=== PATIENT | female | born 1990 | race African-American/Black ===

== ENCOUNTER 2016-06-14 11:49 | Emergency (ER) | payer MEDICAID ==
[~2016-06-14] VITALS: Ht 157.5 cm; Wt 68.0 kg
[2016-06-14] MEDS ORDERED: OCUFLOX5 ML OP (12:16)
--- NOTE | 2016-06-14 12:28 | Emergency Room Report ---
History of Present Illness General Chief Complaint: Eye Problems Source: Patient Present Illness HPI 25 YO Female presents to the ED c/o : left eye redness, discharge, and increased lacrimation x 2 days, son has conjunctivitis and is currently being treated. Patient states her eye feels sticky, she denies pain or sensitivity to light patient denies changes in vision other than intermittent blurriness due to increasing tearing. She denies trauma to the eye. Denies CP, Palpitations, LOC, AMS, dizziness, Changes in Vision, Sensation, paresthesias, or a sudden severe headache. Allergies: Coded Allergies: SHELLFISH DERIVED (Unverified Allergy, Unknown, 06/14/16) Uncoded Allergies: SHELLFISH (Allergy, Unknown, 06/14/16) Patient History Past Medical History: see triage record Past Surgical History: none Pertinent Family History: none Last Menstrual Period: 2 weeks ago Now: No Immunizations: UTD Reviewed Nursing Documentation: PMH: Agreed, PSxH: Agreed Nursing Documentation-PMH Past Medical History: No Stated History Review of Systems All Other Systems: negative except mentioned in HPI Physical Exam Vital Signs Date Time Temp Pulse Resp B/P Pulse Ox O2 Delivery O2 Flow Rate FiO2 06/14/16 12:08 98.2 61 14 126/78 99 Room Air Sp02 EP Interpretation: reviewed, normal General Appearance: no apparent distress, alert, GCS 15, non-toxic Head: normocephalic, atraumatic Eyes: bilateral eye PERRL, bilateral eye normal inspection, bilateral eye other - erythema and obvious d/c noted in the left eye, no evidence of infestation or crusting of the lashes, lids are not swollen , no evidence of periorbital edema. ENT: hearing grossly normal, normal pharynx, no angioedema, normal voice, TMs + canals normal, uvula midline Neck: full range of motion, supple/symm/no masses Respiratory: lungs clear, normal breath sounds, speaking full sentences Cardiovascular #1: regular rate, rhythm, no edema Musculoskeletal: back normal, gait/station normal, normal range of motion, non- tender Neurologic: alert, oriented x3, responsive, motor strength/tone normal, sensory intact, speech normal Psychiatric: judgement/insight normal, memory normal, mood/affect normal Skin: normal color, no rash, warm/dry, well hydrated Lymphatic: no adenopathy Medical Decision Making PA Attestation Dr. Snyder is my supervising Physician whom patient management has been discussed with. Diagnostic Impression: Primary Impression: Conjunctivitis Qualified Codes: H10.32 - Unspecified acute conjunctivitis, left eye ER Course Pt. presents to the ED c/o : left eye redness, discharge, and increased lacrimation x 2 days, son has conjunctivitis and is currently being treated. Ddx considered but are not limited to: corneal abrasion, acute glaucoma, globe rupture, FB, Corneal Ulcer, conjunctivitis. Iridis, orbital cellulitis,keratitis , sinusitis Vital signs: are WNL, pt. is afebrile H&PE are most consistent with: bacterial conjunctivitis, no photophobia or fb sensation to suggest corneal abrasion. ORDERS: none at this time. ED INTERVENTIONS: none at this time. DISCHARGE: At this time pt. is stable for d/c to home. Will provide printed patient care instructions, and any necessary prescriptions. Care plan and follow up instructions have been discussed with the patient prior to discharge. Last Vital Signs Date Time Temp Pulse Resp B/P Pulse Ox O2 Delivery O2 Flow Rate FiO2 06/14/16 12:08 98.2 61 14 126/78 99 Room Air Disposition: HOME, SELF-CARE Condition: Stable Scripts Ofloxacin (OCUFLOX) 5 Ml Drops 3 DROP OP BID for 5 Days, #5 ML Prov: Dona Andrade 06/14/16 Patient Instructions: Bacterial Conjunctivitis Additional Instructions: Take medications as directed. Follow up with PCP in 3 days Return sooner to ED if new symptoms occur, or current symptoms become worse. - Please note that this Emergency Department Report was dictated using [employer] assistant technology software, occasionally this can lead to erroneous entry secondary to interpretation by the dictation equipment. Dona Andrade Jun 14, 2016 12:28
[2016-06-14 12:37] VITALS: BP 119/75
== END 2016-06-14 12:41 | disposition home or self-care (01) ==
LOC: EMR 12:37
DX: H10.9 Unspecified conjunctivitis (principal); Z91.013 Allergy to seafood
CPT/HCPCS: 99283

== ENCOUNTER 2016-09-26 12:03 | Emergency (ER) | payer MEDICAID ==
[~2016-09-26] VITALS: Ht 157.5 cm; Wt 70.3 kg
[~2016-09-26 12:03] MED LIST: OCUFLOX5 ML OP
[2016-09-26] MEDS ORDERED: NKM (12:16)
[2016-09-26 12:28] VITALS: BP 138/82
[2016-09-26] MEDS ORDERED: ZITHROMAX250 MG ORAL (12:56)
[2016-09-26] MEDS ORDERED: VIGAMOX1 DROP RIGHT EYE (12:56)
--- NOTE | 2016-09-26 12:56 | Emergency Room Report ---
History of Present Illness General Chief Complaint: Eye Problems Source: Patient Present Illness HPI Right eye irritation and redness x this morning. Woke up with eye red and with pustular drainage and eyelid swelling. States she has some photophobia and scratchy sensation. No other modifying factors. Does have a young child that is not symptomatic. Denies any other physical complaint or modifying factors. Denies any hx of glaucoma, decreased vision, or eye pain. Allergies: Coded Allergies: SHELLFISH DERIVED (Unverified Allergy, Unknown, 06/14/16) Uncoded Allergies: SHELLFISH (Allergy, Unknown, 06/14/16) Patient History Past Medical History: see triage record Past Surgical History: none Pertinent Family History: none Last Menstrual Period: 09/12/16 Now: No Immunizations: UTD Reviewed Nursing Documentation: PMH: Agreed, PSxH: Agreed Nursing Documentation-PMH Past Medical History: No Stated History Review of Systems All Other Systems: negative except mentioned in HPI Physical Exam Vital Signs Date Time Temp Pulse Resp B/P Pulse Ox O2 Delivery O2 Flow Rate FiO2 09/26/16 12:11 98.2 68 16 138/82 99 Room Air Sp02 EP Interpretation: reviewed, normal General Appearance: no apparent distress, alert, GCS 15, non-toxic Head: normocephalic, atraumatic Eyes: right eye Scleral Injection, right eye lid inflammation, right eye other - IOP 19, bilateral eye EOMI, bilateral eye PERRL ENT: hearing grossly normal, normal pharynx, no angioedema, normal voice, TMs + canals normal Neck: full range of motion, supple/symm/no masses Respiratory: chest non-tender, lungs clear, normal breath sounds, speaking full sentences Cardiovascular #1: regular rate, rhythm, no edema Musculoskeletal: gait/station normal Neurologic: alert, oriented x3, responsive, motor strength/tone normal, sensory intact, speech normal Psychiatric: mood/affect normal Skin: normal color, no rash, warm/dry, well hydrated Medical Decision Making PA Attestation Dr. Macedo my supervising physician with whom patient management has been discussed with. Diagnostic Impression: Primary Impression: Blepharokeratitis of right eye ER Course Pt. presents to the ED c/o Right eye redness and discharge Ddx considered but are not limited to glaucoma, corneal abrasion, bacterial conjunctivitis, allergic conjunctivitis, viral conjunctivitis, CVA, ophthalmic thrombosis retinal detachment Vital signs: are WNL, pt. is afebrile H&PE are most consistent with blepharokeratitis ORDERS: ocular pressure with yohana-pen not consistent with glaucoma ED INTERVENTIONS: none are required at this time DISCHARGE: At this time pt. is stable for d/c to home. Patient advised to follow up with ophthalmology and given additional ER precautions if symptoms persist or worsen. Will provide printed patient care instructions, and any necessary prescriptions. Care plan and follow up instructions have been discussed with the patient prior to discharge. Last Vital Signs Date Time Temp Pulse Resp B/P Pulse Ox O2 Delivery O2 Flow Rate FiO2 09/26/16 13:11 98.2 68 16 138/82 99 Room Air Status: unchanged Disposition: HOME, SELF-CARE Condition: Stable Scripts Moxifloxacin HCl (Vigamox) 3 Ml Drops 1 DROP RIGHT EYE THREE TIMES A DAY for 7 Days, #3 ML 0 Refills Prov: SABRY,TAMEEM P.A. 09/26/16 Azithromycin* (ZITHROMAX*) 250 Mg Tablet 250 MG ORAL as directed, #6 TAB 0 Refills Take two tables once daily for 1 day, then one tablet once daily for 4 days. Prov: SABRY,TAMEEM P.A. 09/26/16 Referrals: NOT CHOSEN [facility]/MD,REFERRING (PCP) Patient Instructions: Bacterial Conjunctivitis, [id number], Blepharitis Additional Instructions: Take medication as directed. Put warm, wet pressure on your eyes Wet a clean wash cloth with warm (not scalding hot) water and put it over your eyes. When the wash cloth cools, reheat it with warm water and put it back over your eyes. Repeat these steps for 5 minutes, 2 to 4 times a day. Gently rub your eyelids Do this right after putting warm, wet pressure on your eyes. Use the washcloth or a clean fingertip to gently rub your eyelid in small circles. Wash your eyelids Use plain warm water or warm water with a drop of baby shampoo on a clean washcloth, gauze pad, or cotton swab. Gently clean any crusty material off the eyelashes and eyelids. Do not rub hard or you can cause more irritation. You can also use [id number] eyelid scrubs and pads. Advised patient to go to the ER immediately if the swelling and heat extend beyond the eye lid, if sxs worsen, vision changes, eye pain, or if they do not improve in the next 3-5 days. ROSALBA OCASIO Sep 26, 2016 12:56
[2016-09-26 13:11] VITALS: BP 138/82
== END 2016-09-26 13:11 | disposition home or self-care (01) ==
LOC: EMR 12:40
DX: H16.8 Other keratitis (principal); Z91.013 Allergy to seafood
CPT/HCPCS: 99284

== ENCOUNTER 2017-08-25 11:17 | Emergency (ER) | payer MEDICAID ==
[~2017-08-25] VITALS: Ht 177.8 cm; Wt 72.6 kg
[~2017-08-25 11:17] MED LIST changes: +NKM; +VIGAMOX1 DROP RIGHT EYE; +ZITHROMAX250 MG ORAL
[2017-08-25 11:40] VITALS: BP 117/82
[2017-08-25] MEDS ORDERED: Mylanta II UD 30ml ORAL ONE (12:00)
[2017-08-25] MEDS ORDERED: Lidocaine 2% Visc 15ml soln ORAL ONE (12:00)
[2017-08-25] MEDS ORDERED: Dicyclomine HCl 10mg/5ml oral soln ORAL ONE (12:00)
[2017-08-25] MEDS ORDERED: RANITIDINE HCL150 MG ORAL (12:24)
[2017-08-25 12:41] VITALS: BP 115/89
[2017-08-25 12:45] VITALS: BP 115/89
--- NOTE | 2017-08-25 13:46 | Emergency Room Report ---
History of Present Illness General Chief Complaint: Abdominal Pain Source: Patient Present Illness HPI 26-year-old female presents ED complaining of abdominal pain. Pain is epigastric, intermittent, sharp, 8 out of 10, nonradiating. Started 3 days ago. Denies pain at this time. Denies nausea or vomiting. Denies chest pain or shortness of breath. Denies flank pain. Denies dysuria or hematuria. No other aggravating or relieving factors. Denies any other associated symptoms Allergies: Coded Allergies: SHELLFISH DERIVED (Unverified Allergy, Unknown, 06/14/16) Uncoded Allergies: SHELLFISH (Allergy, Unknown, 06/14/16) Patient History Past Medical History: asthma Past Surgical History: none Pertinent Family History: none Social History: Denies: smoking, alcohol use, drug use Now: No Immunizations: UTD Reviewed Nursing Documentation: PMH: Agreed; PSxH: Agreed Nursing Documentation-PMH Past Medical History: No History, Except For Hx Asthma: Yes Review of Systems All Other Systems: negative except mentioned in HPI Physical Exam Vital Signs Date Time Temp Pulse Resp B/P (MAP) Pulse Ox O2 Delivery O2 Flow Rate FiO2 08/25/17 11:22 97.9 74 20 117/82 98 Room Air 97.9 Sp02 EP Interpretation: reviewed, normal General Appearance: no apparent distress, alert, GCS 15, non-toxic Head: normocephalic, atraumatic Eyes: bilateral eye normal inspection, bilateral eye PERRL ENT: hearing grossly normal, normal pharynx, no angioedema, normal voice Neck: full range of motion, supple/symm/no masses Respiratory: chest non-tender, lungs clear, normal breath sounds, speaking full sentences Cardiovascular #1: regular rate, rhythm, no edema Cardiovascular #2: 2+ carotid (R), 2+ carotid (L), 2+ radial (R), 2+ radial (L) , 2+ dorsalis pedis (R), 2+ dorsalis pedis (L) Gastrointestinal: normal bowel sounds, non tender, soft, non-distended, no guarding, no rebound Rectal: deferred Genitourinary: normal inspection, no CVA tenderness Musculoskeletal: back normal, gait/station normal, normal range of motion, non- tender Neurologic: alert, oriented x3, responsive, motor strength/tone normal, sensory intact, speech normal Psychiatric: judgement/insight normal, memory normal, mood/affect normal, no suicidal/homicidal ideation Reflexes: 3+ bicep (R), 3+ bicep (L), 3+ tricep (R), 3+ tricep (L), 3+ knee (R) , 3+ knee (L) Skin: normal color, no rash, warm/dry, well hydrated Lymphatic: no adenopathy Medical Decision Making Diagnostic Impression: Primary Impression: Gastritis Qualified Codes: K29.00 - Acute gastritis without bleeding ER Course Hospital Course 26-year-old F presents to ED with epigastric pain differential diagnosis: gastritis, SBO, cholecystits Clinical course Patient placed on stretcher. On security monitor. After initial history, physical exam reveals female in no acute distress. Abdomen soft. No guarding or rebound. Bowel sounds normal. She points to her epigastrium as the source of pain. No pains during ED course. Patient has no cardiac risk factors. No nausea or vomiting. Passing flatus passing stool. No concern for obstruction. No alcohol use. Consideration for gastritis. I offered option for labs but patient declines. We will order Pepcid and GI cocktail here. We'll discharge on Zantac. Patient states that she will come back if symptoms do not resolve with medication I feel this is a highly complex case requiring extensive working including EKG/ Rhythm strip, Xray/CT/US, Blood/urine lab work, repeat exams while in ED, and administration of strong opiates/narcotics for pain control, admission to hospital or close patient follow up. Diagnosis - gastritis Stable and discharged to home with prescriptions for Zantac. Followup with PMD. Return to ED if symptoms recur or worsen Last Vital Signs Date Time Temp Pulse Resp B/P (MAP) Pulse Ox O2 Delivery O2 Flow Rate FiO2 08/25/17 12:45 97.9 89 18 115/89 98 Room Air 97.9 Status: improved Disposition: HOME, SELF-CARE Condition: Stable Scripts Ranitidine Hcl* (ZANTAC*) 150 Mg Tablet 150 MG ORAL TWICE A DAY, #30 TAB Prov: Stephen Powell MD 08/25/17 Patient Instructions: Gastritis, Adult, [id number] Stephen Powell MD Aug 25, 2017 13:46
== END 2017-08-25 12:47 | disposition home or self-care (01) ==
LOC: EMR 11:55
DX: K29.70 Gastritis, unspecified, without bleeding (principal); J45.909 Unspecified asthma, uncomplicated; Z91.013 Allergy to seafood
CPT/HCPCS: 99283

== ENCOUNTER 2019-10-08 12:06 | Emergency (ER) | payer MEDICAID ==
[~2019-10-08] VITALS: Ht 157.5 cm; Wt 70.3 kg
[~2019-10-08 12:06] MED LIST changes: +RANITIDINE HCL150 MG ORAL
[2019-10-08 12:28] VITALS: BP 130/89
--- NOTE | 2019-10-08 12:28 | NUR ---
ED Nurse Note:pt. came with right ear pain and drainage for 1 week, seen by ER
--- NOTE | 2019-10-08 12:34 | Emergency Room Report ---
History of Present Illness General Chief Complaint: Earache Source: Patient Present Illness HPI Patient presents with right ear pain. This been going on for several days. She has pain when she lays on the ear or pulls on it. She denies any fevers or chills. She has been aggressively trying to clean it. Hearing is somewhat decreased at this time. She denies any sore throat. The left ear is normal. There is no headache per se. There is no rash. No cough or chest pain. The pain is rated 8/10, aching and radiating somewhat around the ear. She has not taken any medication for this. Allergies: Coded Allergies: SHELLFISH DERIVED (Unverified Allergy, Unknown, 06/14/16) Uncoded Allergies: SHELLFISH (Allergy, Unknown, 06/14/16) COVID-19 Screening Contact w/high risk pt: No Experienced COVID-19 symptoms?: No COVID-19 Testing performed MANHOLE STRIPPER: No Patient History Past Medical History: see triage record Social History Narrative With son Last Menstrual Period: 08/2019 Now: No Reviewed Nursing Documentation: PMH: Agreed; PSxH: Agreed Nursing Documentation-PMH Hx Asthma: Yes Review of Systems Constitutional: Reports: see HPI Eye: Denies: nose congestion, discharge ENT: Reports: see HPI Respiratory: Reports: see HPI Cardiovascular: Reports: see HPI Gastrointestinal: Denies: nausea Genitourinary: Reports: other - Not Skin: Denies: rash Neurological: Reports: see HPI Physical Exam Vital Signs Date Time Temp Pulse Resp B/P (MAP) Pulse Ox O2 Delivery O2 Flow Rate FiO2 10/08/19 12:14 98.4 74 19 130/89 (103) 96 Room Air Sp02 EP Interpretation: reviewed, normal General Appearance: well appearing, no apparent distress, GCS 15 Head: normocephalic Eyes: bilateral eye normal inspection, bilateral eye PERRL, bilateral eye EOMI ENT: normal pharynx, moist mucus membranes, other Neck: full range of motion, supple Respiratory: normal inspection Cardiovascular #1: regular rate, rhythm Cardiovascular #2: 2+ radial (R) Gastrointestinal: normal inspection Musculoskeletal: gait/station normal Neurologic: alert, grossly normal Skin: no rash, warm/dry Medical Decision Making Diagnostic Impression: Primary Impression: External otitis Qualified Codes: H60.501 - Unspecified acute noninfective otitis externa, right ear Additional Impression: cerumen ER Course Patient presents with right ear pain. Differential includes external otitis, otitis media, cerumen impaction, cellulitis amongst others. Based on exam otitis externa is diagnosed. Patient is given Motrin here for pain. Discussed treatment plan with patient. The cerumen will have to wait until the infection is cleared. Pain improved. Patient stable for outpatient observation and treatment. Last Vital Signs Date Time Temp Pulse Resp B/P (MAP) Pulse Ox O2 Delivery O2 Flow Rate FiO2 10/08/19 12:51 98.4 10/08/19 12:45 74 19 130/89 96 Room Air Status: improved Disposition: HOME, SELF-CARE Condition: Improved Scripts Ibuprofen* (MOTRIN*) 600 Mg Tablet 600 MG ORAL Q6H PRN for FOR PAIN, #16 TAB 0 Refills Prov: Jeanmarie Deluca MD 10/08/19 Hydrocodone Bit/Acetaminophen 5-325* (NORCO 5-325 TABLET*) 1 Each Tablet 1 TAB ORAL Q6H PRN for FOR PAIN, #6 TAB 0 Refills Prov: Jeanmarie Deluca MD 10/08/19 Neomycin/Polymyxin B Sulf/Hc* (CORTISPORIN EAR SOLUTION*) 10 Ml Solution 3 DROP RIGHT EAR TID, #10 ML 0 Refills Prov: Jeanmarie Deluca MD 10/08/19 Jeanmarie Deluca MD Oct 08, 2019 12:34
[2019-10-08] MEDS ORDERED: IBUPROFEN600 M1 ORAL (12:37)
[2019-10-08] MEDS ORDERED: CORTISPORIN EAR10 ML RIGHT EAR (12:37)
[2019-10-08] MEDS ORDERED: NORCO 5-325 TA1 EAC1 ORAL (12:37)
[2019-10-08 12:45] VITALS: BP 130/89
--- NOTE | 2019-10-08 12:45 | NUR ---
ED Nurse Note: Pt cleared by health care Provider for discharge. DC instructions/prescription was given and explained to pt and verbalized understanding of teachings. All medical deviecs such as ID band removed. Pt is AAO x4, ambulatory and left with all personal belongings.
== END 2019-10-08 12:50 | disposition home or self-care (01) ==
LOC: EMR 12:49
DX: H60.501 Unspecified acute noninfective otitis externa, right ear (principal); H61.21 Impacted cerumen, right ear; Z91.013 Allergy to seafood
CPT/HCPCS: 99282